=== PATIENT | female | born 1945 ===

== ENCOUNTER 2018-09-21 15:18 | Outpatient (CLI) | payer OTHER ==
--- NOTE | 2018-09-21 15:58 | BD ---
EXAM: DEXA bone density examination HISTORY: 72-year-old postmenopausal female for screening COMPARISON: None FINDINGS: L1--bone mineral density 0.905 g/sq cm; T score -0.8 L2--bone mineral density 1.017 g/sq cm; T score -0.1 L3--bone mineral density 1.121 g/sq cm; T score 0.3 L4--bone mineral density 1.050 g/sq cm; T score -0.1 Total L1-L4--bone mineral density 1.024 g/sq cm; T score -0.2 Left femoral neck--bone mineral density0.744; T score -0.9 Total proximal left femur--bone mineral density 0.976; T score 0.3 IMPRESSION: Normal bone density
--- NOTE | 2018-09-21 16:37 | MMO ---
Bilateral MAMMO Bilat Screen [facility]. CLINICAL HISTORY: Patient is 72 years old and is seen for screening. The patient has no family history of breast cancer. The patient has no personal history of cancer. The patient has a history of left needle biopsy - benign. VIEWS: The views performed were: bilateral craniocaudal with tomosynthesis and bilateral mediolateral oblique with tomosynthesis. MAMMOGRAM FINDINGS: There are scattered fibroglandular densities. Finding 1: There is an intramammary lymph node seen in the left breast. Finding 2: Benign calcifications are noted bilaterally. Mass with coarse calcs in the left lower inner breast is likely fibroadenoma. There are no suspicious masses, suspicious calcifications, or areas of architectural distortion. IMPRESSION: THERE IS NO MAMMOGRAPHIC EVIDENCE OF MALIGNANCY. A ROUTINE FOLLOW-UP MAMMOGRAM IN 1 YEAR IS RECOMMENDED. THE RESULTS OF THIS EXAM WERE SENT TO THE PATIENT. ACR BI-RADS Category 2 - Benign finding MAMMOGRAPHY NOTE: 1. A negative mammogram report should not delay a biopsy if a dominant of clinically suspicious mass is present. 2. Approximately 10% to 15% of breast cancers are not detected by mammography. 3. Adenosis and dense breasts may obscure an underlying neoplasm.
== END 2018-09-21 15:19 | disposition home or self-care (01) ==
LOC: BICMAMMO 15:18
PROVIDERS: ATTEND Student in an Organized Health Care Education/Training Program
DX: Z12.31 Encounter for screening mammogram for malignant neoplasm of breast (principal); Z13.820 Encounter for screening for osteoporosis
CPT/HCPCS: 77063; 77067; 77080